=== PATIENT | female | born 1995 | race Caucasian/White ===

== ENCOUNTER 2022-10-22 02:48 | Emergency (ER) | payer BC ==
[~2022-10-22] VITALS: Ht 160 cm; Wt 59.0 kg
--- NOTE | 2022-10-22 04:15 | NUR ---
PT AMB TO BR / URINE COLLECTED/ SENT TO LAB. PT AMB TO [facility] 1B WITH STEADY GAIT.
--- NOTE | 2022-10-22 04:20 | NUR ---
LAB AT BEDSIDE DRAWING BLOOD.
[2022-10-22 04:35] LABS: HEMATOCRIT 43.7 % (31.2-41.9); MEAN CORPUSCULAR HEMOGLOBIN 29.3 uug (24.7-32.8); MEAN CORPUSCULAR VOLUME 87.1 fL (75.5-95.3); PLATELET COUNT (AUTO) 340 K/uL (179-408)
[2022-10-22 04:41] LABS: *BILIRUBIN,URIN NEGATIVE (NEGATIVE); *BLOOD, URINE NEGATIVE (NEGATIVE); *CLARITY,URINE CLEAR (CLEAR); *COLOR,URINE YELLOW (YELLOW); *KETONES,URINE NEGATIVE (NEGATIVE); *UROBILINOGEN,URINE 0.2 E.U./dl (NORMAL); LEUKOCYTE ESTERASE ,URINE NEGATIVE (NEGATIVE); NITRITE, URINE NEGATIVE (NEGATIVE); PH,URINE 5.5 (5.0-8.0); UGLUCOSE NEGATIVE (NEGATIVE)
[2022-10-22] MEDS ORDERED: IV NS 1000 ML 1,000 ML IV ONE (04:45)
[2022-10-22 04:52] LABS: *URINE HCG, QUAL NEGATIVE (NEGATIVE)
[2022-10-22 04:56] LABS: *AMPHETAMINE, URINE NEGATIVE (NEGATIVE); *CANNABINOID, URINE NEGATIVE (NEGATIVE); *COCCAINE, URINE NEGATIVE (NEGATIVE); *PHENCYCLIDINE SCREEN,URINE NEGATIVE (NEGATIVE)
[2022-10-22 04:57] LABS: ALANINE AMINOTRANSFERASE 22 U/L (14-59); ALKALINE PHOSPHATASE 94 U/L (50-136); ASPARTATE AMINOTRANSFERASE 17 U/L (15-37); BILIRUBIN,TOTAL 0.2 mg/dL (0.2-1.0); CARBON DIOXIDE 21 mmol/L (21-32); CHLORIDE 104 mmol/L (98-107); CREATININE 0.6 mg/dL (0.6-1.3); POTASSIUM 3.4 mmol/L (3.5-5.1); TOTAL PROTEIN, SERUM 8.1 g/dL (6.4-8.2); UREA NITROGEN, BLOOD 12 mg/dL (7-18)
[2022-10-22 04:58] LABS: ACETAMINOPHEN < 2.0 ug/mL (10-30)
[2022-10-22] MEDS ORDERED: FAMOTIDINE. 20 MG/2 ML VIAL IV ONE ×2 (05:45→07:33)
[2022-10-22 07:55] LABS: CARBON DIOXIDE 19 mmol/L (21-32); CHLORIDE 107 mmol/L (98-107); POTASSIUM 3.6 mmol/L (3.5-5.1)
[2022-10-22 07:56] LABS: CREATININE 0.6 mg/dL (0.6-1.3); UREA NITROGEN, BLOOD 11 mg/dL (7-18)
[2022-10-22 08:01] LABS: ALANINE AMINOTRANSFERASE 20 U/L (14-59); ALKALINE PHOSPHATASE 83 U/L (50-136); ASPARTATE AMINOTRANSFERASE 10 U/L (15-37); BILIRUBIN,TOTAL 0.1 mg/dL (0.2-1.0); TOTAL PROTEIN, SERUM 6.7 g/dL (6.4-8.2)
--- NOTE | 2022-10-22 08:05 | NUR ---
Attempted to contact Art for Crisis Counseling. Received to response. Left message. Safety measures in place. Will continue to monitor.
[2022-10-22 08:22] LABS: ACETAMINOPHEN < 2.0 ug/mL (10-30)
--- NOTE | 2022-10-22 08:35 | NUR ---
Contacted Art for crisis counseling. Art stated to have pt be seen by social media marketer first. Safety measures in place. Will continue to monitor.
--- NOTE | 2022-10-22 08:39 | NUR ---
Contacted group social worker Jerri to see patient. Safety measures in place. Will continue to monitor.
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
--- NOTE | 2022-10-22 16:59 | NUR ---
Patient discharged to home in stable condition. Written and verbal after care instructions given. Patient verbalizes understanding of instructions. Stressed follow up or return to ER for worsening s/s.
[2022-10-22 17:09] VITALS: BP 140/106; TEMP 98.4; O2SAT 97
== END 2022-10-22 17:09 | disposition home or self-care (01) ==
LOC: ER 02:56
DX: T39.312A Poisoning by propionic acid derivatives, intentional self-harm, initial encounter (principal); F10.129 Alcohol abuse with intoxication, unspecified; R45.851 Suicidal ideations; Y92.89 Other specified places as the place of occurrence of the external cause; Y90.6 Blood alcohol level of 120-199 mg/100 ml
CPT/HCPCS: 80053 ×2; 81003; 84703; 85025; 85610; 36415; 99283; 96361; 96374; 80299 ×2; 80320 ×2; 80307; J3490; J7040; A4663; G0480